=== PATIENT | female | born 1985 | race Caucasian/White ===

== ENCOUNTER 2017-03-12 19:06 | Emergency (ER) | payer OTHER ==
[~2017-03-12] VITALS: Ht 167.6 cm; Wt 71.7 kg
[~2017-03-12 19:06] MED LIST: MTR600X PO; OXYC5TAB PO
[2017-03-12 19:08] VITALS: TEMP 37; Ht 167.6 cm; Wt 71.7 kg
[2017-03-12] MEDS ORDERED: SODIUM CHLORIDE 0.9% 1000ML 1,000 ML IV STA (19:18)
[2017-03-12 19:38] LABS: URINE APPEARANCE CLEAR (CLEAR); URINE BILIRUBIN NEG (NEG); URINE COLOR YELLOW; URINE EPITHELIAL CELL AUTO >30 /lpf (0-5); URINE NITRITE NEG (NEG); URINE SPECIFIC GRAVITY 1.021 (1.000-1.030); UROBILINOGEN NEG (NEG)
[2017-03-12 19:40] LABS: BASO % 0.4 %; BASO ABS # 0.04 K/uL (0-0.2); COMPLETE YES; EOS % 0.5 %; HEMATOCRIT 44.5 % (37-47); IG% 0.3 %; LYMPH % 29.2 %; LYMPH ABS # 3.05 K/uL (1.2-3.4); MEAN CELL VOLUME 91.4 fL (80-100); MEAN CORPUSCULAR HEMOGLOBIN 31.8 pg (25-34); MEAN CORPUSCULAR HGB CONC 34.8 g/dl (32-36); MEAN PLATELET VOLUME 10.4 fL (7.4-10.4); MONO % 5.5 %; NEUT % 64.1 %; PLATELET COUNT 245 K/uL (130-400); RED BLOOD COUNT 4.87 M/uL (4.2-5.4); WHITE BLOOD COUNT 10.46 K/uL (4.8-10.8)
[2017-03-12 19:40] LABS: MANUAL MICROSCOPIC REQUIRED? NO; REVIEW REQ? NO
--- NOTE | 2017-03-12 19:51 | DIAGNOSTIC IMAGING REPORT ---
CHEST ONE VIEW PORTABLE CLINICAL HISTORY: Weakness. COMPARISON STUDY: No previous studies for comparison. FINDINGS: Lung volumes are normal. Lungs are clear. No pneumothorax or pleural effusion is present. Cardiac size is normal. Mediastinal contours are normal. There is no evidence of pulmonary edema. IMPRESSION: No acute cardiopulmonary findings. Electronically signed by: Eric Miller M.D. 03/12/2017 7:50 PM Dictated Date/Time: 03/12/2017 7:49 PM
[2017-03-12 20:01] LABS: PREG INTERNAL NEGATIVE QC NEG CLEAR BACKGROUND; PREG INTERNAL POSITIVE QC POS CONTROL LINE
[2017-03-12 20:04] LABS: ALT/SGPT 25 U/L (12-78); BLOOD UREA NITROGEN 16 mg/dl (7-18); BUN/CREATININE RATIO 19.5 (10-20); CALCIUM 8.8 mg/dl (8.5-10.1); CARBON DIOXIDE 24 mmol/L (21-32); CHLORIDE 109 mmol/L (98-107); CREATININE 0.84 mg/dl (0.60-1.20); GLUCOSE 97 mg/dl (70-99); MAGNESIUM 1.9 mg/dl (1.8-2.4); POTASSIUM 3.7 mmol/L (3.5-5.1); SODIUM 140 mmol/L (136-145)
[2017-03-12 20:13] LABS: ALKALINE PHOSPHATASE 63 U/L (45-117); AST/SGOT 20 U/L (15-37); CKMB/CK RATIO 0.8 (0-3.0)
--- NOTE | 2017-03-12 20:17 | DIAGNOSTIC IMAGING REPORT ---
CT OF THE HEAD WITHOUT CONTRAST CLINICAL HISTORY: Headache. Congestion. COMPARISON STUDY: Head CT October 22, 2007. CT DOSE: 537.48 mGy.cm TECHNIQUE: Helical axial images of the head were obtained without IV contrast. Automated exposure control was utilized for the study. FINDINGS: No acute intracranial hemorrhage, midline shift or mass effect is present. Brain volume is normal. Ventricular system is normal. Basilar cisterns are patent. There are no extra axial collections. Guidry-white differentiation is maintained. There are no findings to suggest acute dural sinus thrombosis or acute territorial infarct. There are no significant calvarial abnormalities. Visualized portions of the sinuses are clear. IMPRESSION: No acute intracranial findings. Electronically signed by: Eric Miller M.D. 03/12/2017 8:16 PM Dictated Date/Time: 03/12/2017 8:14 PM
[2017-03-12 20:48] VITALS: BP 134/72; PULSE 56; O2SAT 100
--- NOTE | 2017-03-13 02:36 | EMERGENCY ROOM VISIT NOTE ---
History Report prepared by Moises: Michelle Odom Under the Supervision of: Dr. Presley Bush M.D. First contact with patient: 19:13 Chief Complaint: TACHYCARDIA Stated Complaint: RACING HEART, SOB, VERY NERVOUS Nursing Triage Summary: pt states past 3 days feeling heart racing gets nervous from it and checked her fit bit and her heart rate is in the 100's when normally it is in the 40-50's. denies cp but does get sob with it. yesterday had the worst migraine and took 3 excedren then 2 more then 3 more then finally it went away History of Present Illness The patient is a 31 year old female who presents to the Emergency Room with complaints of tachycardia beginning 2 days ago. The patient states that she has felt nervous and anxious lately. She states that she has not had this sensation or feeling before. The patient states that she does not come to the hospital often and that she feels nervous being here. She reports that her heart rate on her Fitbit went from being in the 40's to the low 100's. She also states that she had a migraine yesterday that lasted about 6 hours. She took more Excedrin migraine than usual and that still did not relieve her headache, and states that this is one of the worst migraines she has ever had. She does report getting migraines irregularly. The patient also complains of shortness of breath and trouble breathing. She reports recent travel to [place]. The patient has a history of a tubal ligation. Pt denies LOC, current headache, fevers, chills, diaphoresis, visual changes, neck pain, chest pain, nausea, vomiting, abdominal pain, back pain, melena, hematochezia, urinary symptoms, numbness, weakness, lymphadenopathy, rash, or other complaints. Source of History: patient Onset: 2 days ago Position: other (global) Quality: other (tachycardia) Associated Symptoms: + SOB Review of Systems See HPI for pertinent positives and negatives. A total of ten systems were reviewed and were otherwise negative. Past Medical & Surgical Medical Problems: (1) Branchial cleft cyst Surgical Problems: (1) S/P tubal ligation Family History Cancer Heart disease Lung disease Social History Smoking Status: Former Smoker Alcohol Use: none Marital Status: Housing Status: lives with family Current/Historical Medications No Active Prescriptions or Reported Meds Allergies Coded Allergies: Neomycin (Verified Allergy, Intermediate, HIVES, 10/02/15) Polymyxin B (Verified Allergy, Intermediate, HIVES, 10/02/15) Physical Exam Vital Signs Date Time Temp Pulse Resp B/P (MAP) Pulse Ox O2 Delivery O2 Flow Rate FiO2 03/12/17 20:48 56 14 134/72 100 03/12/17 19:24 Room Air 03/12/17 19:23 61 03/12/17 19:08 37.0 71 18 150/73 98 Room Air Physical Exam GENERAL: Awake, alert, well appearing, no distress HENT: Normocephalic, atraumatic. TM's normal. Oropharynx unremarkable. EYES: PERRL. EOMI. Normal conjunctiva. Sclera non-icteric. NECK: Supple. No nuchal rigidity. FROM. No JVD or bruit. RESPIRATORY: CTA CARDIAC: Bradycardia. No murmur. ABDOMEN: Soft, non distended. No tenderness to palpation. No rebound or guarding. No masses. RECTAL: Deferred. MUSCULOSKELETAL: Unremarkable. No edema. No discoloration. Gross motor strength symmetric. NEURO: Cranial nerves 2-12 grossly intact. Normal sensorium. No sensory or motor deficits noted. . Speech normal. No pronator drift. SKIN: No rash or jaundice noted. LYMPH: No adenopathy. Medical Decision & Procedures ER Provider Diagnostic Interpretation: X-ray: Per my interpretation, radiologist review. CHEST ONE VIEW PORTABLE CLINICAL HISTORY: Weakness. COMPARISON STUDY: No previous studies for comparison. FINDINGS: Lung volumes are normal. Lungs are clear. No pneumothorax or pleural effusion is present. Cardiac size is normal. Mediastinal contours are normal. There is no evidence of pulmonary edema. IMPRESSION: No acute cardiopulmonary findings. Electronically signed by: Eric Miller M.D. 03/12/2017 7:50 PM Dictated Date/Time: 03/12/2017 7:49 PM [2040]: Radiology results as stated below per my review and radiologist interpretation. CT OF THE HEAD WITHOUT CONTRAST CLINICAL HISTORY: Headache. Congestion. COMPARISON STUDY: Head CT October 22, 2007. CT DOSE: 537.48 mGy.cm TECHNIQUE: Helical axial images of the head were obtained without IV contrast. Automated exposure control was utilized for the study. FINDINGS: No acute intracranial hemorrhage, midline shift or mass effect is present. Brain volume is normal. Ventricular system is normal. Basilar cisterns are patent. There are no extra axial collections. Guidry-white differentiation is maintained. There are no findings to suggest acute dural sinus thrombosis or acute territorial infarct. There are no significant calvarial abnormalities. Visualized portions of the sinuses are clear. IMPRESSION: No acute intracranial findings. Electronically signed by: Eric Miller M.D. 03/12/2017 8:16 PM Dictated Date/Time: 03/12/2017 8:14 PM Laboratory Results 03/12/17 19:25 Red Blood Count 4.87, Mean Corpuscular Volume 91.4, Mean Corpuscular Hemoglobin 31.8, Mean Corpuscular Hemoglobin Concent 34.8, Mean Platelet Volume 10.4, Neutrophils (%) (Auto) 64.1, Lymphocytes (%) (Auto) 29.2, Monocytes (%) (Auto) 5.5, Eosinophils (%) (Auto) 0.5, Basophils (%) (Auto) 0.4, Neutrophils # (Auto) 6.71, Lymphocytes # (Auto) 3.05, Monocytes # (Auto) 0.58, Eosinophils # (Auto) 0.05, Basophils # (Auto) 0.04 03/12/17 19:25 Test 03/12/17 19:20 03/12/17 19:25 03/12/17 19:40 Urine Color YELLOW Urine Appearance CLEAR (CLEAR) Urine pH 5.0 (4.5-7.5) Urine Specific [place] 1.021 (1.000-1.030) Urine Protein NEG (NEG) Urine Glucose (UA) NEG (NEG) Urine Ketones NEG (NEG) Urine Occult Blood NEG (NEG) Urine Nitrite NEG (NEG) Urine Bilirubin NEG (NEG) Urine Urobilinogen NEG (NEG) Urine Leukocyte Esterase MODERATE (NEG) Urine WBC (Auto) 5-10 /hpf (0-5) Urine RBC (Auto) 0-4 /hpf (0-4) Urine Hyaline Casts (Auto) 1-5 /lpf (0-5) Urine Epithelial Cells (Auto) >30 /lpf (0-5) Urine Bacteria (Auto) NEG (NEG) Urine Test NEG (NEG) White Blood Count 10.46 K/uL (4.8-10.8) Red Blood Count 4.87 M/uL (4.2-5.4) Hemoglobin 15.5 g/dL (12.0-16.0) Hematocrit 44.5 % (37-47) Mean Corpuscular Volume 91.4 fL (80-100) Mean Corpuscular Hemoglobin 31.8 pg (25-34) Mean Corpuscular Hemoglobin Concent 34.8 g/dl (32-36) Platelet Count 245 K/uL (130-400) Mean Platelet Volume 10.4 fL (7.4-10.4) Neutrophils (%) (Auto) 64.1 % Lymphocytes (%) (Auto) 29.2 % Monocytes (%) (Auto) 5.5 % Eosinophils (%) (Auto) 0.5 % Basophils (%) (Auto) 0.4 % Neutrophils # (Auto) 6.71 K/uL (1.4-6.5) Lymphocytes # (Auto) 3.05 K/uL (1.2-3.4) Monocytes # (Auto) 0.58 K/uL (0.11-0.59) Eosinophils # (Auto) 0.05 K/uL (0-0.5) Basophils # (Auto) 0.04 K/uL (0-0.2) RDW Standard Deviation 43.7 fL (36.4-46.3) RDW Coefficient of Variation 13.0 % (11.5-14.5) Immature Granulocyte % (Auto) 0.3 % Immature Granulocyte # (Auto) 0.03 K/uL (0.00-0.02) Anion Gap 7.0 mmol/L (3-11) Est Creatinine Clear Calc Drug Dose 96.6 ml/min Estimated GFR () 105.8 Estimated GFR (Non- 91.3 BUN/Creatinine Ratio 19.5 (10-20) Calcium Level 8.8 mg/dl (8.5-10.1) Magnesium Level 1.9 mg/dl (1.8-2.4) Total Bilirubin 0.3 mg/dl (0.2-1) Direct Bilirubin mg/dl (0-0.2) Aspartate Amino Transf (AST/SGOT) 20 U/L (15-37) Alanine Aminotransferase (ALT/SGPT) 25 U/L (12-78) Alkaline Phosphatase 63 U/L (45-117) Total Creatine Kinase 74 U/L (26-192) Creatine Kinase MB 0.6 ng/ml (0.5-3.6) Creatine Kinase MB Ratio 0.8 (0-3.0) Troponin I < 0.015 ng/ml (0-0.045) Total Protein 7.7 gm/dl (6.4-8.2) Albumin 3.7 gm/dl (3.4-5.0) Thyroid Stimulating Hormone (TSH) 1.860 uIu/ml (0.300-4.500) Chemistry Specimen Hemolysis Bedside D-Dimer 232 ng/mlFEU (0-450) Laboratory results reviewed by me Medications Administered Medications (Trade) Dose Ordered Sig/Huma Route Start Time Stop Time Status Last Admin Dose Admin Sodium Chloride 1,000 ml @ 125 mls/hr Q8H STAT IV 03/12/17 19:18 03/12/17 21:09 DC 03/12/17 19:59 125 MLS/HR ECG Indication: tachycardia Rate (beats per minute): 58 Rhythm: sinus rhythm Findings: no acute ischemic change, no ectopy ED Course 1915: The patient was evaluated in room A2. A complete history and physical exam was performed. 1917: Ordered Sodium Chloride 1,000 ml @ 125 mls/hr IV. 2029: The patient fells well. I reviewed her tests with her. She feels comfortable with following up in an office and she is happy about how thorough I have been. 2031: I reevaluated the patient. Discussed results and discharge instructions: She verbalized understanding and agreement. The patient is ready for discharge. Medical Decision Blood pressure screening: Patient was found to have an elevated blood pressure and was referred to their primary doctor for recheck and further treatment. Medication Reconciliation: I attest that I have personally reviewed the patient' s current medication list Triage Nursing notes reviewed and agree them. The patient notes her heart rate was in the very low 100 range most around 90 however. She never had a heart rate higher than that. The patient also still feel some palpitations in her current heart rate is around 60. Additional history obtained from the family. The patient's history was concerning for palpitations. Differential diagnosis: Etiologies such as electrolyte abnormality, cardiac dysrhythmia, thyroid dysfunction, pulmonary embolism, infection, gastrointestinal, intracranial event, mood disorder, as well as others were entertained. Physical examination: Benign as above. ER treatment provided: Cardiac monitoring. Saline hydration On reassessment the patient felt better after reassurance. Diagnostic interpretation by me: The electrocardiogram was negative for pathologic change. The labs revealed an unremarkable CBC, chemistry panel, cardiac markers, and d- dimer, TSH and magnesium. Urinalysis and test negative. Imaging studies: Chest x-ray and CT scan as above. Clinically the patient is doing well. She does not have any complaints of significant anxiety or depression. She noted a headache yesterday which is similar to headaches in the past although this one lasted longer. She did take a bunch of Excedrin for this. Her feelings of palpitations however started prior to the headache, the day before. Even though she feels somewhat anxious and feels like she has a racing heartbeat the monitor revealed that she had actually borderline bradycardia most of her time in the Emergency Room. An extensive workup was done after discussion with the patient. This was unremarkable. I discussed conservative management with the patient and she was very much in agreement. She will follow-up closely with her primary physician. If she worsens in any way she will be back. By the evaluation outlined above emergent etiologies such as electrolyte abnormality, cardiac dysrhythmia, thyroid dysfunction, pulmonary embolism, infection, as well as others were deemed relatively unlikely. The patient and were informed about the findings as listed above. All questions were answered and they were pleased with the treatment. Return instructions were outlined and the patient was discharged in stable condition. Referral: The patient was referred back to her primary care physician for follow-up next week for a recheck of the current condition. Impression Primary Impression: Palpitations Scribe Attestation The scribe's documentation has been prepared under my direction and personally reviewed by me in its entirety. I confirm that the note above accurately reflects all work, treatment, procedures, and medical decision making performed by me. Departure Information Dispostion Home / Self-Care Prescriptions No Active Prescriptions or Reported Meds Referrals Refugio Brown M.D. Forms HOME CARE DOCUMENTATION FORM, IMPORTANT VISIT INFORMATION, WORK / SCHOOL INSTRUCTIONS Patient Instructions My [facility] Additional Instructions Rest and drink plenty of fluids as tolerated. Continue current medications. Resume normal activities once your symptoms resolve. Eat a heart healthy, low fat, low cholesterol diet. Return to the ER immediately for passing out, chest pain, abdominal pain, vomiting, fevers, difficulty breathing, worsening of your condition, or as needed.
== END 2017-03-12 20:49 | disposition home or self-care (01) ==
LOC: C.EDB 19:08 → C.EDA 20:49
DX: R00.2 Palpitations (principal); R00.0 Tachycardia, unspecified; R00.1 Bradycardia, unspecified; R11.0 Nausea; F41.9 Anxiety disorder, unspecified; R06.02 Shortness of breath; Z87.891 Personal history of nicotine dependence; Z82.49 Family history of ischemic heart disease and other diseases of the circulatory system; Z83.6 Family history of other diseases of the respiratory system